=== PATIENT | female | born 1950 | race Caucasian/White ===

== ENCOUNTER → 2018-07-14 | Outpatient (CLI) | payer MEDICARE | END | disposition home or self-care (01) | LOC: CFH 10:03 | PROVIDERS: ATTEND Obstetrics & Gynecology Gynecology | DX: Z12.31 Encounter for screening mammogram for malignant neoplasm of breast (principal) | CPT/HCPCS: 77063; 77067 ==

== ENCOUNTER 2019-07-25 09:38 | Outpatient (CLI) | payer MEDICARE | END 2019-07-25 23:59 | disposition home or self-care (01) | LOC: CFH 09:38 | PROVIDERS: ATTEND Obstetrics & Gynecology Gynecology | DX: Z12.31 Encounter for screening mammogram for malignant neoplasm of breast (principal) | CPT/HCPCS: 77063; 77067 ==

== ENCOUNTER 2021-02-26 11:11 | Outpatient (CLI) | payer MEDICARE | END 2021-02-26 23:59 | disposition home or self-care (01) | LOC: CFH 11:11 | PROVIDERS: ATTEND Internal Medicine | DX: Z13.820 Encounter for screening for osteoporosis (principal); R92.1 Mammographic calcification found on diagnostic imaging of breast; M85.88 Other specified disorders of bone density and structure, other site; N63.32 Unspecified lump in axillary tail of the left breast | CPT/HCPCS: 76642; 77062; 77080; 77066; G0279 ==